=== PATIENT | female | born 1975 | race Caucasian/White ===

== ENCOUNTER 2016-09-10 02:07 | Emergency (ER) | payer OTHER ==
--- NOTE | ~2016-09-10 | CT16 ---
[facility] A Service [facility] RADIOLOGY TEXT RESULTS PATIENT: GILMER MACDONALD LOCATION: [facility] : 79 UNIT #: [id number] AGE: [address]: Tank Cowan MD SEX: F ORDER DR: [id number] [facility] [address] [place], [place] [address] [id number] E MR#: [id number] #: [id number] NAME: GILMER MACDONALD : 1975 SEX: F STUDY DATE/TIME: 09/10/2016 5:25 UNIT: [facility] ROOM: STUDY DESCRIPTION: CT Angio Chest for PE Attending Physician: Tank Cowan M.D. Ordering Physician: Tank Cowan M.D. MEDICAL IMAGING REPORT This report is preliminary unless electronic signature is present EXAM CTA chest PE protocol INDICATIONS Right-sided chest pain since yesterday. TECHNIQUE Contrast-enhanced CTA of the chest attention on opacification pulmonary arteries. Coronal 3-D MIP sagittal reformatted images reconstructed and submitted. This CT exam was performed with one or more of the following radiation dose reduction techniques: automatic exposure control, adjustment of mA and/or kV according to patient size, and iterative reconstruction. COMPARISON STUDIES None. FINDINGS No evidence for pulmonary embolus. Previous granulomatous disease. No evidence for aortic injury. Mildly prominent axillary nodes, measuring up to 1.4 cm in the left are nonspecific. No acute findings in the upper abdomen. There is atelectasis in the right middle lobe. Scattered calcified and noncalcified small nodules in both lungs, most significant in the left lower lobe and inferior right upper lobe as well as the posterior left upper lobe and apex on the right. No aggressive appearing bone lesion. IMPRESSION 1. No evidence for pulmonary embolus. 2. Right middle lobe atelectasis. 3. Previous granulomatous disease. [facility] A Service [facility] RADIOLOGY TEXT RESULTS PATIENT: GILMER MACDONALD LOCATION: [facility] : 79 UNIT #: [id number] AGE: [address]: Tank Cowan MD SEX: F ORDER DR: 4. Scattered micro-nodules in the right and left lung as above, nonspecific but probably representing noncalcified granulomas. Recommend comparison with any available prior imaging or followup to document stability. Dictated by... Zachary Wilhelm M.D. THIS IS AN ELECTRONICALLY VERIFIED REPORT Zachary Wilhelm M.D. at 09/11/2016 9:53 PM EED/pcl TD: 09/10/2016 11:40 JOB #: [id number] MEDICAL IMAGING REPORT Page 1 of 1 COPY
--- NOTE | ~2016-09-10 | CR72 ---
[facility] A Service of [facility] RADIOLOGY TEXT RESULTS PATIENT: GILMER MACDONALD LOCATION: [facility] : 79 UNIT #: [id number] AGE: [address]: Tank Cowan MD SEX: F ORDER DR: [id number] [facility] [address] [place], [place] [address] [id number] E MR#: [id number] #: [id number] NAME: GILMER MACDONALD : 1975 SEX: F STUDY DATE/TIME: 09/10/2016 4:47 UNIT: [facility] ROOM: STUDY DESCRIPTION: CR Chest Single View Portable Attending Physician: Tank Cowan M.D. Ordering Physician: Tank Cowan M.D. Primary Care Physician: Primary Care Physician No MEDICAL IMAGING REPORT This report is preliminary unless electronic signature is present EXAM Portable chest INDICATIONS Chest pain today. PROCEDURE Frontal view chest. COMPARISON: 02/27/2012 FINDINGS Heart size is normal. No dense consolidation, effusion or pneumothorax. IMPRESSION No active process Dictated by... Zachary Wilhelm M.D. THIS IS AN ELECTRONICALLY VERIFIED REPORT Zachary Wilhelm M.D. at 09/11/2016 9:57 PM EEKevin/mayank TD: 09/10/2016 11:36 JOB #: [id number] MEDICAL IMAGING REPORT Page 1 of 1 COPY
--- NOTE | ~2016-09-10 | EKG ---
PATIENT: GILMER MACDONALD UNIT #: [id number] Ventricular Rate: 88 BPM Atrial Rate: 88 BPM P-R Interval: 152 ms QRS Duration: 88 ms Q-T Interval: 366 ms QTC Calculation(Bezet): 442 ms P Cowley: 62 degrees Calculated R Cowley: 70 degrees Calculated T Cowley: 63 degrees Diagnosis Line: Normal sinus rhythm Diagnosis Line: Normal ECG Diagnosis Line: No previous ECGs available Diagnosis Line: Confirmed by PANCHITO BOLAÑOS MD ([id number]) on Diagnosis Line: 09/10/2016 9:40:05 PM INTERPRETING MD: MIKY FERRARI
[2016-09-10 03:24] LABS: POC - CKMB <1.0 ng/mL (0.0-7.9); POC - TROPONIN <0.05 ng/mL (<=0.05)
[2016-09-10 03:36] LABS: BUN/CREATININE RATIO 18.75; CALCIUM SERUM 8.8 mg/dL (8.4-10.2); CREATININE SERUM 0.8 mg/dL (0.6-1.4); GLOM FILT RATE Estimated 93.6 mL/min (>60); POTASSIUM 3.7 mmol/L (3.5-5.1)
[2016-09-10 03:38] LABS: BASOPHIL% 1.1 % (0-2.5); EOSINOPHIL# 0.2 X10e3 (0-0.7); EOSINOPHIL% 4.1 % (0.0-7.0); HEMATOCRIT 38.4 % (35.0-45.0); HEMOGLOBIN 12.5 gm/dL (12.0-16.0); LYMPHOCYTE# 0.8 X10e3 (1.0-3.5); LYMPHOCYTE% 18.5 % (17.0-45.0); MEAN CELL VOLUME 82.9 FL (83-96); MEAN CORPUSCULAR HEMOGLOBIN 27.1 PG (28-34); MEAN CORPUSCULAR HGB CONC 32.6 g/dL (30-36); MEAN PLATELET VOLUME 7.6 FL (6.5-11.5); MONOCYTE# 0.4 X10e3 (0-1.0); MONOCYTE% 8.6 % (3.0-12.0); NEUTROPHIL# 2.8 X10e3 (1.5-7.1); NEUTROPHIL% 67.7 % (40-75); PLATELET COUNT 190 X10e3 (140-420); RED BLOOD COUNT 4.63 X10e (3.90-5.30); RED CELL DISTRIBUTION WIDTH 15.4 % (11.0-15.5); WHITE BLOOD COUNT 4.1 X10e3 (4.0-10.5)
[2016-09-10 03:39] LABS: DIFF IND NO
[2016-09-10 03:52] LABS: PARTIAL THROMBOPLASTIN TIME 25.8 SECONDS (23.5-31.3); PROTHROMBIN TIME (PATIENT) 10.2 SECONDS (9.6-11.5)
== END 2016-09-10 06:27 | disposition home or self-care (01) ==
LOC: CED 02:07
PROVIDERS: Emergency Medicine
DX: M54.6 Pain in thoracic spine (principal); I10 Essential (primary) hypertension; F17.200 Nicotine dependence, unspecified, uncomplicated; Z88.0 Allergy status to penicillin; Z88.1 Allergy status to other antibiotic agents; Z88.8 Allergy status to other drugs, medicaments and biological substances
CPT/HCPCS: 36415; 71010; 71275; 80048; 82553; 84484; 85025; 85379; 85610; 85730; 93005; 99284; J1885; Q9967